=== PATIENT | male | born 1980 | race Caucasian/White ===

== ENCOUNTER 2019-08-31 09:45 | Day surgery (SDC) | payer OTHER ==
[~2019-08-31 09:45] MED LIST: ACID REDUCER20 M1 PO; ANUSOL-HC30 G2 RC; CANASA1000 MG/SU RC
== END 2019-08-31 17:30 | disposition home or self-care (01) ==
LOC: CIR.AMB 09:45
PROVIDERS: ATTEND Colon & Rectal Surgery
DX: K64.8 Other hemorrhoids (principal); K64.4 Residual hemorrhoidal skin tags